=== PATIENT | male | born 1975 | race Caucasian/White ===

== ENCOUNTER → 2021-11-21 09:58 | Outpatient (BNVA) | payer OTHER, SELFPAY | PROVIDERS: PCP Internal Medicine; Visit Provider Internal Medicine | DX: S50.871A Other superficial bite of right forearm, initial encounter (principal); S40.811A Abrasion of right upper arm, initial encounter; Y04.2XXA Assault by strike against or bumped into by another person, initial encounter | CPT/HCPCS: 99203 ==

== ENCOUNTER 2021-11-21 10:54 | Emergency (ER) | payer OTHER, SELFPAY ==
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
[2021-11-21 11:35] VITALS: BP 180/103; PULSE 82; RESP 18; TEMP 36.4; O2SAT 97; BMI 39.3
[2021-11-21 12:04] LABS: Appearance Urine Clear; Color Urine Yellow; Glucose Urine UA 500 mg/dL (Negative); Leukocyte Esterase Urine Negative (Negative); Nitrite Urine Negative (Negative); Specific Gravity - Urine 1.015 (1.005-1.025); UMIC TRIGGER UACC YES; Urine Blood Moderate (2+) (Negative); Urine Ketones Negative (Negative); Urine Protein >=1000 (4+) mg/dL (Neg-Trace)
[2021-11-21 12:22] LABS: Bacteria Urine None Seen (None Seen); Hyaline Casts Urine 0-2 /LPF (0-2); RBC Urine 0-2 /HPF (0-2); Squamous Epithelial Cell Urine 0-2 /HPF (0-2); WBC Urine 0-5 /HPF (0-5)
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
[2021-11-21 13:14] VITALS: BP 174/97
== END 2021-11-21 15:27 | disposition home or self-care (01) ==
PROVIDERS: Nurse Practitioner Family; Emergency Provider Emergency Medicine; PCP Internal Medicine
DX: S50.811A Abrasion of right forearm, initial encounter (principal); R10.9 Unspecified abdominal pain; R31.9 Hematuria, unspecified; R07.81 Pleurodynia; Y04.8XXA Assault by other bodily force, initial encounter; Y93.9 Activity, unspecified; Y92.219 Unspecified school as the place of occurrence of the external cause; Y99.9 Unspecified external cause status
CPT/HCPCS: 71101; 74176; 81001; 81003; 99283; 99284

== ENCOUNTER 2021-11-26 15:11 | Emergency (ER) | payer OTHER, SELFPAY ==
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
[2021-11-26 15:21] VITALS: BP 170/94; PULSE 102; RESP 18; TEMP 36.9; O2SAT 98; BMI 39.3
[2021-11-26 16:55] LABS: MANUAL DIFF FLAG NO
[2021-11-26 16:56] LABS: Basophils Absolute Auto 0.1 X10*3/uL (0.0-0.2); Basophils Percent Auto 0.4 % (0-2); Eosinophils Absolute Auto 0.4 X10*3/uL (0.0-0.4); Hemoglobin 9.7 g/dl (14.0-18.0); Imm Gran Pct Auto 0.8 % (0.0-0.4); Lymphocytes Absolute Auto 2.8 X10*3/uL (1.2-4.9); Lymphocytes Percent Auto 22.9 % (20-40); Mean Corpuscular HGB Conc 32.3 g/dl (31.0-36.0); Mean Corpuscular Volume 86.5 fL (80.0-98.0); Mean Platelet Volume 10.2 fL (9.4-12.4); Monocytes Absolute Auto 1.2 X10*3/uL (0.1-1.2); Monocytes Percent Auto 9.9 % (2-11); Neutrophils Absolute Auto 7.6 x10*3/uL (2.0-8.3); Platelet Count 355 X10*3/uL (160-400); Red Blood Count 3.47 X10*6/uL (4.60-5.80); Red Cell Distribution Width 12.6 % (11.0-16.0); White Blood Count 12.1 X10*3/uL (4.8-10.8)
[2021-11-26 17:09] LABS: INTERNATIONAL NORM RATIO 0.9 (0.9-1.1); Prothrombin Time 10.8 SEC (10.0-13.1)
[2021-11-26 17:20] LABS: Anion Gap 12 (12-20); Blood Urea Nitrogen 20 mg/dL (9-16); Calcium 7.8 mg/dL (8.4-10.2); Carbon Dioxide 28 mmol/L (22-29); Chloride 106 mmol/L (96-108); Creatinine Clr Calc Pharmacy 89.3; Estimated Glomerular Filt Rate 52; Glucose Random 370 mg/dL (60-115); Potassium 4.6 mmol/L (3.3-5.1); Sodium 141 mmol/L (135-145)
[2021-11-26 20:46] VITALS: BP 176/94; PULSE 84; RESP 19; TEMP 37; O2SAT 94
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
[2021-11-26 22:06] VITALS: BP 199/104; PULSE 89; TEMP 36.8; O2SAT 96
[2021-11-26 22:19] LABS: Glucose, Whole Blood 196 mg/dL (60-115)
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
[2021-11-26] MEDS: lisinopriL 10 MG TABLET 30 MG PO (22:58)
[2021-11-26] MEDS: Atropine Sulfate 1 % Ophth Sol 2 ML BOTTLE 1 DROP EYE-RIGHT (22:59)
--- NOTE | 2021-11-26 23:01 | PC.NURSE ---
pt a&ox3, hypertensive, other vss, medicated per provider order, atropine applied to R eye, pt reporting 7/10 headache. no new orders at this time.
[2021-11-27 00:37] VITALS: BP 199/106; PULSE 83; RESP 18; O2SAT 97
== END 2021-11-27 01:31 | disposition home or self-care (01) ==
PROVIDERS: Emergency Provider Internal Medicine; PCP Physician Assistant Medical
DX: S05.91XA Unspecified injury of right eye and orbit, initial encounter (principal); H43.11 Vitreous hemorrhage, right eye; R51.9 Headache, unspecified; Y04.2XXA Assault by strike against or bumped into by another person, initial encounter; Y92.219 Unspecified school as the place of occurrence of the external cause; Y99.0 Civilian activity done for income or pay; Z79.899 Other long term (current) drug therapy
CPT/HCPCS: 36415; 70450; 80048; 82947; 85025; 85610; 99283; 99284